=== PATIENT | male | born 1965 | race Caucasian/White ===

== ENCOUNTER 2020-02-22 17:32 | Outpatient (CLI) | payer BC, OTHER, SELFPAY ==
--- NOTE | ~2020-02-22 | XR_ITS ---
EXAMINATION: XR knee LT min 4V DATE: 02/22/2020 17:59 INDICATION: Left knee pain TECHNIQUE: Four views of the left knee were obtained. COMPARISON: None. FINDINGS: Alignment is normal. No fracture or osteochondral lesion. There is mild tricompartmental os teoarthritis characterized by tiny marginal osteophytes. No joint effusion/synovitis. Soft tissues a re unremarkable. IMPRESSION: 1. No acute osseous abnormality. Reviewed, dictated and finalized at location A.
== END 2020-02-22 17:33 | disposition home or self-care (01) ==
PROVIDERS: PCP Family Medicine; Visit Provider Family Medicine
DX: M25.562 Pain in left knee (principal)
CPT/HCPCS: 73564

== ENCOUNTER → 2021-06-26 02:24 | Outpatient (CLI) | payer BC, OTHER, SELFPAY ==
[2021-06-26 15:08] LABS: SARS-CoV-2 RNA PCR Negative
== END ==
PROVIDERS: PCP Family Medicine; Visit Provider Internal Medicine Gastroenterology
DX: Z01.812 Encounter for preprocedural laboratory examination (principal); Z20.822 Contact with and (suspected) exposure to COVID-19
CPT/HCPCS: C9803; U0003; U0005

== ENCOUNTER 2021-06-29 02:27 | Day surgery (SDC) | payer BC, OTHER, SELFPAY ==
[2021-06-20 09:25] VITALS: BMI 34.4
--- NOTE | 2021-06-28 13:17 | PM.HPGS ---
History of Present Illness History of Present Illness Consent: Risks, benefits, and alternatives have been discussed and questions answered. Patient agrees to proceed with procedure. Chief complaint: hx of colon polyps, neoplasm screening Narrative: Mehul Byers is a 55 year old male Was referred for colon cancer screening. He had a polyp removed about 6 years ago Review of Systems Review of Systems: All systems reviewed & are unremarkable except as noted in HPI and below PMFSH Past Medical History Medical History Anxiety Family History Family History Father Malignant neoplasm of prostate Family history of diabetes mellitus in first degree relative Social History Social History Smoking packs per day: 1 Smoking cigarettes per day: 20.0 Years smoked: 25 Smoking pack-years: 25.00 Smoking status: Former smoker Tobacco type: cigarettes Smoking end date: 06/02/11 Alcohol intake: never Substance use: never Substance use type: does not use Living arrangements: with family Gender identity (if verbalized by the patient): Male Spiritual care concerns: No Meds Home Medications and Allergies Home Medications Medication Instructions Recorded Confirmed Type cyclobenzaprine 10 mg tablet 10 mg PO TID PRN #30 tablet 07/16/19 06/29/21 Rx lorazepam 0.5 mg tablet 0.5 mg PO BID PRN #30 tablet 02/03/20 06/29/21 Rx ibuprofen 600 mg tablet See Rx Instructions .ROUTE 09/18/20 06/29/21 Rx .COMPLEX #90 tablet sertraline 100 mg tablet 100 mg PO DAILY #90 tablet 11/21/20 06/29/21 Rx sertraline 25 mg tablet 25 mg PO DAILY #90 tablet 11/21/20 06/29/21 Rx ascorbic acid (vitamin C) 500 mg PO DAILY 06/20/21 06/29/21 History cetirizine [Zyrtec] 10 mg PO DAILY 06/20/21 06/29/21 History cholecalciferol (vitamin D3) 100 mcg PO DAILY 06/20/21 06/29/21 History [Vitamin D3] multivitamin with minerals [Men's 2 tablet PO DAILY 06/20/21 06/29/21 History One Daily] zinc gluconate 25 mg PO DAILY 06/20/21 06/29/21 History Allergies Allergy/AdvReac Type Severity Reaction Status Date / Time No Known Allergies Allergy Unknown Verified 06/29/21 06:17 Exam Const: General: alert Orientation/consciousness: patient oriented x3 Resp: Auscultation: clear to auscultation bilaterally Cardio: Rhythm: regular rhythm GI: GI Palp: Yes Soft to palpation and No Tenderness to palpation present (GI) Neuro: General: patient oriented x3 Assessment and Plan Assessment and plan (1) Colon cancer screening: Code(s): Z12.11 - Encounter for screening for malignant neoplasm of colon Status: Acute Assessment and Plan: Colonoscopy with possible biopsy or polypectomy or cautery or injection of substances.
[2021-06-29 06:18] VITALS: BP 119/78; PULSE 83; RESP 18; TEMP 35.9; O2SAT 97; BMI 34.9
[2021-06-29] MEDS: LACTATED RINGERS 1,000 ML 150 ML IV CONT (06:21)
--- NOTE | 2021-06-29 06:54 | WPDANESEPPF ---
Anes - Initial Pre Proc Eval Procedure: Operation Date: 06/29/21 07:30 Proposed Procedures p Screening Colonoscopy - Nino Pearson MD Date/Time: 06/29/21 06:54 Surgeon: Nino Pearson MD Pre Op Diagnosis: hx of colon polyps, neoplasm screening Patient Data Age: 55 Gender: M Height: 1.78 m Weight: 110.4 kg Last Vital Signs Temp 35.9 C L 06/29/21 06:18 Pulse 83 06/29/21 06:18 Resp 18 06/29/21 06:18 BP 119/78 06/29/21 06:18 Pulse Ox 97 06/29/21 06:18 Allergies Allergy/AdvReac Type Severity Reaction Status Date / Time No Known Allergies Allergy Unknown Verified 06/29/21 06:17 Home Medications Medication Instructions Recorded Confirmed Type cyclobenzaprine 10 mg tablet 10 mg PO TID PRN #30 tablet 07/16/19 06/29/21 Rx lorazepam 0.5 mg tablet 0.5 mg PO BID PRN #30 tablet 02/03/20 06/29/21 Rx ibuprofen 600 mg tablet See Rx Instructions .ROUTE 09/18/20 06/29/21 Rx .COMPLEX #90 tablet sertraline 100 mg tablet 100 mg PO DAILY #90 tablet 11/21/20 06/29/21 Rx sertraline 25 mg tablet 25 mg PO DAILY #90 tablet 11/21/20 06/29/21 Rx ascorbic acid (vitamin C) 500 mg PO DAILY 06/20/21 06/29/21 History cetirizine [Zyrtec] 10 mg PO DAILY 06/20/21 06/29/21 History cholecalciferol (vitamin D3) 100 mcg PO DAILY 06/20/21 06/29/21 History [Vitamin D3] multivitamin with minerals [Men's 2 tablet PO DAILY 06/20/21 06/29/21 History One Daily] zinc gluconate 25 mg PO DAILY 06/20/21 06/29/21 History Patient hx anesthesia problems: none Family hx anesthesia problems: none Results Review: All pre-operative results and documents have been reviewed as part of the pre-operative evaluation. PMFSH Past Medical History Medical History Anxiety Family History Family History Father Malignant neoplasm of prostate Family history of diabetes mellitus in first degree relative Social History Social History Smoking packs per day: 1 Smoking cigarettes per day: 20.0 Years smoked: 25 Smoking pack-years: 25.00 Smoking status: Former smoker Tobacco type: cigarettes Smoking end date: 06/02/11 Alcohol intake: never Substance use: never Substance use type: does not use Living arrangements: with family Gender identity (if verbalized by the patient): Male Spiritual care concerns: No Anes - Eval Final PreProcedure Day of Procedure 06/29/21 06:54 Patient weight: obese Heart: regular rate and rhythm Lungs: clear to auscultation Airway: Mallampati scale class II Neurological: alert and oriented Last oral intake: >/= 8 hours ASA classification: II Emergent: no Anesthetic plan: proceed Anesthesia type and monitoring: general GIVS and standard monitoring Results Review: All pre-operative results and documents have been reviewed as part of the pre-operative evaluation. Informed Consent: The patient's anesthetic plan and its attendant risks and benefits were discussed with the patient/family/POA. Questions were solicited and answers provided to the satisfaction of the patient/family/POA.
[2021-06-29 07:38] VITALS: BP 85/56; PULSE 65; RESP 17; O2SAT 99
[2021-06-29 07:48] VITALS: BP 91/61; PULSE 61; RESP 16; O2SAT 99
[2021-06-29 07:58] VITALS: BP 111/61; PULSE 55; RESP 16; O2SAT 99
== END 2021-06-29 08:03 | disposition home or self-care (01) ==
PROVIDERS: PCP Family Medicine; Visit Provider Internal Medicine Gastroenterology
PROC: 0DJD8ZZ Inspection of Lower Intestinal Tract, Via Natural or Artificial Opening Endoscopic (ICD-10-PCS; CPT 45378; principal; 2021-06-29 07:30)
DX: Z12.11 Encounter for screening for malignant neoplasm of colon (principal); Z86.010 Personal history of colon polyps; F41.9 Anxiety disorder, unspecified; Z87.891 Personal history of nicotine dependence; E66.9 Obesity, unspecified; Z68.34 Body mass index [BMI] 34.0-34.9, adult
CPT/HCPCS: 45378; J2704; J7120